=== PATIENT | female | born 1945 | race Caucasian/White ===

== ENCOUNTER → 2023-06-23 11:51 | Outpatient (REF) | payer OTHER, SELFPAY | LOC: HWRAD 11:51 | PROVIDERS: ATTENDING PHYSICIAN Family Medicine | DX: M85.89 Other specified disorders of bone density and structure, multiple sites (principal); Z78.0 Asymptomatic menopausal state; Z12.31 Encounter for screening mammogram for malignant neoplasm of breast | CPT/HCPCS: 77063; 77067; 77080 ==

== ENCOUNTER → 2023-06-23 11:55 | Outpatient (REF) | payer SELFPAY | LOC: HWRAD 11:55 | PROVIDERS: ATTENDING PHYSICIAN Family Medicine; OTHER PHYSICIAN Internal Medicine Cardiovascular Disease | DX: E78.00 Pure hypercholesterolemia, unspecified (principal) | CPT/HCPCS: 75571 ==

== ENCOUNTER → 2023-10-24 09:09 | Outpatient (REF) | payer OTHER, SELFPAY | LOC: HWRCS 09:09 | PROVIDERS: ATTENDING PHYSICIAN Internal Medicine Cardiovascular Disease; FAMILY PHYSICIAN Family Medicine | DX: I35.1 Nonrheumatic aortic (valve) insufficiency (principal) | CPT/HCPCS: 93306 ==

== ENCOUNTER → 2024-10-01 10:03 | Outpatient (REF) | payer OTHER, SELFPAY | LOC: HWWDC 10:03 | PROVIDERS: ATTENDING PHYSICIAN Family Medicine | DX: Z12.31 Encounter for screening mammogram for malignant neoplasm of breast (principal) | CPT/HCPCS: 77063; 77067 ==

== ENCOUNTER → 2024-10-07 08:16 | Outpatient (REF) | payer OTHER, SELFPAY | LOC: WDC 08:16 | PROVIDERS: ATTENDING PHYSICIAN Family Medicine | DX: R92.8 Other abnormal and inconclusive findings on diagnostic imaging of breast (principal) | CPT/HCPCS: 76642 ==

== ENCOUNTER → 2024-10-14 06:58 | Outpatient (REF) | payer OTHER, SELFPAY ==
--- NOTE | 2024-10-14 08:17 | OID.BR.INTR ---
[facility] Breast Navigator - Initial
- -
Date of Contact: 10/14/24
Met with patient. Patient given written information on navigator service available at [facility]. Will follow up as needed per protocol.
== END ==
LOC: WDC 06:58
PROVIDERS: ATTENDING PHYSICIAN Family Medicine
DX: N63.12 Unspecified lump in the right breast, upper inner quadrant (principal)
CPT/HCPCS: 19083; 88305; 88341; 88360; A4648

== ENCOUNTER → 2024-11-28 07:55 | Outpatient (REF) | payer OTHER, SELFPAY | LOC: WDC 07:55 | PROVIDERS: ATTENDING PHYSICIAN Surgery; FAMILY PHYSICIAN Internal Medicine | DX: C50.411 Malignant neoplasm of upper-outer quadrant of right female breast (principal) | CPT/HCPCS: 19285; A4648 ==

== ENCOUNTER 2024-11-29 06:10 | Day surgery (SDC) | payer OTHER, SELFPAY ==
[2024-11-18 08:56] LABS: Hematocrit 39.0 % (37.0-47.0); Hemoglobin 12.9 g/dL (12.0-16.0); Mean Corp Hgb Conc. 33.1 g/dL (33.0-37.0); Mean Corpuscular Volume 99.2 fL (81.0-99.0); Platelet Count 309 10^3/uL (130-400); Red Cell Dist. Width 12.9 % (11.5-14.5)
[2024-11-18 09:14] LABS: AST (SGOT) 25 U/L (14-36); Blood Urea Nitrogen 26 mg/dl (7-17); Chloride 101 mmol/L (98-107); Glucose 86 mg/dl (70-99)
[2024-11-18 09:25] LABS: ALT (SGPT) 27 U/L (0-35); Albumin 4.8 g/dl (3.5-5.0); Alkaline Phosphatase 74 U/L (38-126); Calcium 9.7 mg/dl (8.4-10.2); Carbon Dioxide 26 mmol/L (22-30); Potassium 4.7 mmol/L (3.5-5.1); Sodium 135 mmol/L (135-145); Total Protein 7.7 g/dl (6.3-8.2); eGFR > 60.00
[2024-11-18 13:36] LABS: Prealbumin (Transthyretin) 29.9 mg/dl (17.6-36.0)
[2024-11-18 13:49] LABS: Vitamin D, 25-OH*** 66.7 ng/mL (30-80)
[2024-11-18 14:02] VITALS: BMI 18.6
[2024-11-29 07:41] VITALS: BMI 18.6
[2024-11-29 07:42] VITALS: BP 153/80
[2024-11-29] MEDS: TYLENOL 1000 MG PO (07:46)
[2024-11-29] MEDS: NORMOSOL-R/PLASMALYTE-A 1000 IV (07:52)
[2024-11-29] MEDS: LOVENOX 40 MG SC (08:45)
[2024-11-29 10:15] VITALS: BP 123/68
--- NOTE | 2024-11-29 10:17 | W.IMMPOSTOP ---
Surgical Immed Post Op Note
-
Primary Surgeon: Amado
Assisting Surgeon: None
Pre-op Diagnosis: right breast ca
Post-op Diagnosis: same
Procedure Performed: right localized lumpectomy
Anesthesia Type: TIVA
Specimen / Cultures: right lumpectomy and margins
Estimated Blood Loss: 2cc
Complications: None
Operative Findings: clip and reflector in specimen
--- NOTE | 2024-11-29 10:18 | OR.RPT ---
Addendum entered and electronically signed by Judy Fischer MD 12/03/24 17:42:
Operative date is 11/29/24.
Original Note:
Operative Report
Operative Report
The patient is a 79-year-old female who had image detected right breast carcinoma presents for breast conservation surgery. She met criteria to forego axillary sampling. On the day prior to the procedure she presented to the [facility] and had a Flory reflector placed at the site of the tumor. On the day of surgery she presented to the same-day surgical services unit where she was prepped. She verified site and procedure and DVT and antibiotic prophylaxis were provided.
She was taken to the operating room and in the supine position intravenous sedation was delivered. Right breast was prepped and draped in the usual sterile fashion and all team members performed an appropriate timeout procedure.
All tissues were anesthetized with 1% lidocaine plain and a curvilinear incision was made overlying the area of the Flory youth development professional signal. Skin flaps were elevated and a wide lumpectomy was performed using the cautery. Time out of body was noted and
the specimen was oriented for the pathologist. Specimen radiography confirmed the presence of clip and reflector within it. This specimen had been taken down to and including pectoralis fascia therefore a separate posterior margin was not sent
under separate cover. Margins from the posterior, superior, lateral, inferior, and anterior dimensions were taken and oriented and sent under separate cover. Hemostasis was maintained with the cautery. Marcaine 0.5% plain was instilled and
hemoclips were placed in the resection cavity. The wound was closed using simple interrupted 3-0 plain on deep intermediate and subcutaneous tissue and skin was closed with a running subcuticular 4-0 Monocryl.
Surgical glue and a sterile compressive dressing were applied. All sponge needle and instrument counts were correct and the patient was transferred back to same-day surgical services for recovery
([id number])
[2024-11-29 10:30] VITALS: BP 135/76
== END 2024-11-29 10:50 | disposition home or self-care (01) ==
LOC: SDS 06:10
PROVIDERS: ATTENDING PHYSICIAN Surgery; FAMILY PHYSICIAN Internal Medicine
DX: C50.411 Malignant neoplasm of upper-outer quadrant of right female breast (principal); Z17.0 Estrogen receptor positive status [ER+]
CPT/HCPCS: 19301; 36415; 76098; 80053; 82306; 84134; 85027; 88305; 88307; 93005

== ENCOUNTER 2024-12-12 06:57 | Emergency (ER) | payer OTHER, SELFPAY ==
[2024-12-12 07:03] VITALS: BP 146/72
--- NOTE | 2024-12-12 07:29 | ED.GENMED ---
History of Present Illness
General
Chief Complaint: Post Operative Problem(s)
Source: patient and spouse
Time Seen by Provider: 12/12/24 07:14
History of Present Illness
History of Present Illness:
This patient is a 79-year-old female presents emergency department with complaints of drainage from her lumpectomy site. The lumpectomy was performed approximately 2 weeks ago and was uneventful. She denies fever, chills, chest pain, shortness of
breath, abdominal pain, nausea, vomiting, anorexia. At the incision, she notes that it has been red for about a week, but last night she noted that the dressing was wet and again today which prompted her visit here.
Past History
Past History
ED Past Medical History: Other (Breast CA)
ED Past Surgical History: Gynecological
Social History
Tobacco: Non-smoker
Alcohol: None
Drug: None
Personal:
Living: with family
Phy Exam
Physical Exam
Physical Exam:
GENERAL: Alert , in no apparent distress
EYE: pupils equal and reactive
NECK: Supple, no significant adenopathy.
ENT: o/p clr, mmm.
CARDIAC: Regular rate and rhythm .
LUNGS: Clear breath sounds bilaterally, no acute respiratory distress, no wheezes/rales/rhonchi
ABDOMEN: Soft, without focal tenderness, no r/g, no cvat
NEUROLOGICAL: Alert and oriented, no focal neuro deficits
SKIN: Warm and dry, skin intact.
MUSCULOSKELETAL: No edema, well perfused.
PSYCH: Normal and appropriate interaction.
BREAST: incision at approx 11o'clock position, linear, closed, with mild surrounding erythema but no warmth. The lateral aspect of incision is wet with serosang fluid. I am unable to express further fluid from this area, which is without
fluctuance/crepitus/active drainage.
Course
Orders/Labs/Results
Orders:
Orders
12/12/24 07:50
US Breast Right Ltd WDC Urgent
Reason for Exam: ATTN AREA OF INCISION
12/12/24 08:05
Wound Culture [Wound/Abscess/Other Culture] Urgent
JUMANA Source: Breast
Specimen Description: Right
Date Specimen was Collected: 12/12/24
Time Specimen was Collected: 07:53
Vital Signs
Initial and Last Documented VS:
Initial Vital Signs
Temp Pulse Resp BP Pulse Ox
98 F 85 16 146/72 98
12/12/24 07:03 12/12/24 07:03 12/12/24 07:03 12/12/24 07:03 12/12/24 07:03
Last Documented Vital Signs
Temp Pulse Resp BP Pulse Ox
98.5 F 74 20 165/83 96
12/12/24 08:27 12/12/24 08:27 12/12/24 08:27 12/12/24 08:27 12/12/24 08:27
*Pulse Oximetry
SaO2: 98
Oxygen Mode of Delivery: Room air
Patient hypoxic: no
*Critical Care Note
Total Time (30-74mins, 75-104mins- exclusive of procedures): Not Applicable
Update Note
Update Note:
Patient presents to the Emergency Department with drainage from lumpectomy incision
Number and Complexity of Problems Addressed at the Encounter
� Chronic conditions affecting care:
� Acute Exacerbation and/or Progression of Chronic Illness:
� Differential Diagnosis includes:
Amount and/or Complexity of Data to be Reviewed and Analyzed
� I performed an independent evaluation of and my interpretation is:
EKG:
CT:
Xrays:
Laboratory Studies:
Other: us There is inflammation likely related to recent surgery. There is no evidence of an abscess
BI-RADS: II - benign
� Review of other/old records reveals:
� Clinical information was obtained by an independent historian:
� Prescriptions/Medications Considered but not given:
� Further testing considered but not performed:
Risk of Complications and/or Morbidity or Mortality of Patient Management
� Social determinants of health affecting care:
� Discussion with other providers (PCP, Hospitalists, Consultants, etc):
� Escalation of care including admission/observation vs risk of discharge considered:CASE D/W DR SUTTON, INCLUDING PHOTOS, AWARE OF HX/ PHYSICAL. AGREES WITH PLAN TO F/U WITH HER ON MONDAY SCHEDULED, START PO ABX IF US DOES
NOT SHOW A COLLECTION/ABSCESS. D/W PT AND IMPORT OF F/U AND REASONS TO RTED.
ED Attending Note
-
Portions of this chart may have been created with voice recognition software.� Occasional wrong word or��sound alike� substitutions may have occurred due to the inherent limitations of voice recognition software.
Discharge Plan
Departure
Patient Disposition: Home (Routine Discharge)
Date of Disposition: 12/12/24
Time of Disposition: 08:58
Patient with high blood pressure during this ER visit?: No
Condition: Good
Discharge Problem:
Cellulitis
Instructions: Wound Care (DC), BLOOD PRESSURE
Prescriptions:
New
cephalexin 500 mg capsule
500 mg PO Q6H 7 Days Qty: 28 0RF
No Action
azelastine [Astelin] 137 mcg (0.1 %) [place],Non-Aerosol
2 spray INTRANASAL DAILY
estradiol 0.01 % (0.1 mg/gram) Cream
1 appful VAGINAL SUTH
rosuvastatin [Crestor] 10 mg Tablet
10 mg PO DAILY
cholecalciferol (vitamin D3) [Vitamin D3] 50 mcg (2,000 unit) Capsule
50 mcg PO DAILY
Referrals:
Judy Sutton MD [Active, Surgical] - Keep scheduled appt
Uyen Nicole MD [Family Provider, Internal Medicine]
Activity Restrictions/Additional Instructions:
IF YOU DEVELOP FEVER, CHILLS, INCREASING DRAINAGE, DRAINAGE THAT LOOKS LIKE PUS OR IS FOUL SMELLING, SWELLING, VOMITING, GET WORSE, DO NOT GET BETTER OR OTHER WORRISOME SIGNS, GO TO THE ER IMMEDIATELY!
Interventions
Interventions:
*Risk Screen - Suicide Last Done: 12/12/24 07:03
*General Assessment Last Done: 12/12/24 08:27
*Neglect/Abuse Screening Last Done: 12/12/24 07:03
*ED- Fall Risk Assessment Last Done: 12/12/24 08:27
*ED COVID-19 Vaccine History Last Done: 12/12/24 08:27
*ED Influenza Vaccine History Last Done: 12/12/24 08:27
ED-Skin Assessment Last Done: 12/12/24 08:27
Discharge Date and Time
Print Language: BULGARIAN
[2024-12-12 08:25] VITALS: BP 165/83
[2024-12-12 08:27] VITALS: BP 165/83; BMI 23.6
== END 2024-12-12 09:26 | disposition home or self-care (01) ==
LOC: EMR 06:57
PROVIDERS: EMERGENCY PHYSICIAN Emergency Medicine; FAMILY PHYSICIAN Internal Medicine
DX: T81.41XA Infection following a procedure, superficial incisional surgical site, initial encounter (principal); L03.313 Cellulitis of chest wall; C50.911 Malignant neoplasm of unspecified site of right female breast
CPT/HCPCS: 99284; 76642; 87070; 87205